=== PATIENT | male | born 2000 | race African-American/Black ===

== ENCOUNTER 2023-05-16 19:24 | Emergency (ER) | payer OTHER ==
[~2023-05-16] VITALS: Ht 177.8 cm; Wt 77.3 kg
[2023-05-16 19:24] VITALS: BP 123/72; TEMP 97.8; O2SAT 98
[2023-05-16 20:44] LABS: RSV AMPLIFICATION NEGATIVE (NEGATIVE)
== END 2023-05-16 23:35 | disposition home or self-care (01) ==
LOC: M ED 19:24
DX: J06.9 Acute upper respiratory infection, unspecified (principal); Z88.6 Allergy status to analgesic agent